=== PATIENT | male | born 1970 | race American Indian/Alaskan Native ===

== ENCOUNTER 2017-05-28 21:25 | Inpatient (IN) | payer SELFPAY ==
[2017-05-28] MEDS ORDERED: ONDANSETRON 4 MG/2 ML VIAL IVP ONE ×2 (21:47→21:58)
[2017-05-28] MEDS ORDERED: LORazepam 2 MG/ML INJ IVP ONE (21:58)
[2017-05-28] MEDS ORDERED: HYDROmorphONE/DILAUDID 1 MG/ML SYR IVP ONE (21:58)
[2017-05-28] MEDS ORDERED: NS 1,000 ML IV ONE (21:58)
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
[2017-05-28 22:32] LABS: % IMMATURE GRANULYOCYTES 0.6 % (0.0-1.1); ABSOLUTE IMMATURE GRANULOCYTES 0.13 10^3/uL (0.00-0.10); ADD DIFF? NO; ADD MORPH? NO; ADD SCAN? NO; ATYPICAL LYMPHOCYTE FLAG 0 (0-99); FRAGMENT RBC FLAG 0 (0-99); HEMATOCRIT 47.3 % (40.0-51.0); LEFT SHIFT FLG 0 (0-99); LIPEMIA HEMOLYSIS FLAG 90 (0-99); MEAN CELL HEMOGLOBIN 30.1 pg (27.9-34.1); MEAN CELL HEMOGLOBIN CONCENTR. 33.8 g/dL (32.4-36.7); MEAN CELL VOLUME 89.1 fL (81.5-99.8); MEAN PLATELET VOLUME 9.3 fL (8.7-11.7); PLATELET CLUMPS FLAG 40 (0-99); PLATELET COUNT 424 10^3/uL (150-400); RED BLOOD CELL COUNT 5.31 10^6/uL (4.40-6.38); RED CELL DISTRIBUTION WIDTH 12.7 % (11.5-15.2)
[2017-05-28] MEDS ORDERED: IOPAMIDOL (ISOVUE-300) 100 ML BTL ONE (22:36)
[2017-05-28] MEDS ORDERED: NS 2,600 ML IV ONE (22:44)
[2017-05-28 22:56] LABS: ALANINE AMINOTRANSFERASE 26 IU/L (21-72); ALBUMIN 4.5 g/dL (3.5-5.0); ALKALINE PHOSPHATASE 60 IU/L (38-126); ANION GAP 14 mEq/L (8-16); ASPARTATE AMINOTRANSFERASE 20 IU/L (17-59); BILIRUBIN-CONJUGATED 0.4 mg/dL (0.0-0.5); BILIRUBIN-UNCONJUGATED 0.6 mg/dL (0.0-1.1); CALCIUM 9.5 mg/dL (8.5-10.4); CARBON DIOXIDE 22 mEq/l (22-31); CHLORIDE 102 mEq/L (97-110); CREATININE 1.2 mg/dL (0.7-1.3); GLOMERULAR FILTRATION RATE > 60; GLUCOSE 174 mg/dL (70-100); POTASSIUM 4.3 mEq/L (3.5-5.2); SODIUM 138 mEq/L (134-144); TOTAL PROTEIN 6.8 g/dL (6.3-8.2)
[2017-05-28 23:39] LABS: LACGHOST ORDER
[2017-05-29 01:09] LABS: LACGHOST ORDER
[2017-05-29] MEDS ORDERED: ONDANSETRON 4 MG/2 ML VIAL IVP PRN (01:15)
[2017-05-29] MEDS ORDERED: ACETAMINOPHEN 325 MG TAB PO PRN (01:15)
[2017-05-29] MEDS ORDERED: DIAZEPAM 5 MG TAB PO PRN (01:15)
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
--- NOTE | 2017-05-29 01:35 | POSTOPPROG ---
Post Op Note Date of Operation: 05/29/17 Surgeon: Fransisco Emery Anesthesia: Local (Specify) Pre-op Diagnosis: phlebosclerosis Post-op Diagnosis: same Procedure: left IJ 3x lumen cath Inf/Abcess present in the surg proc area at time of surgery?: No EBL: Minimal Complications: none
[2017-05-29] MEDS: HYDROmorphONE/DILAUDID 1 MG/ML SYR IVP PRN (01:41)
[2017-05-29] MEDS: LR 1,000 ML IV SCH ×3 (01:42→15:55)
[2017-05-29 02:21] LABS: HEMATOCRIT 39.2 % (40.0-51.0); HEMOGLOBIN 13.3 g/dL (13.7-17.5)
[2017-05-29 02:30] LABS: INR 1.12 (0.83-1.16); PROTIME(PATIENT) 14.3 SEC (12.0-15.0)
[2017-05-29 02:31] LABS: APTT 30.9 SEC (23.0-38.0)
[2017-05-29 05:46] LABS: % IMMATURE GRANULYOCYTES 0.4 % (0.0-1.1); ABSOLUTE IMMATURE GRANULOCYTES 0.04 10^3/uL (0.00-0.10); ADD DIFF? NO; ADD MORPH? NO; ADD SCAN? NO; ATYPICAL LYMPHOCYTE FLAG 0 (0-99); FRAGMENT RBC FLAG 10 (0-99); HEMATOCRIT 35.9 % (40.0-51.0); HEMOGLOBIN 12.5 g/dL (13.7-17.5); LEFT SHIFT FLG 0 (0-99); LIPEMIA HEMOLYSIS FLAG 90 (0-99); MEAN CELL HEMOGLOBIN 30.6 pg (27.9-34.1); MEAN CELL HEMOGLOBIN CONCENTR. 34.8 g/dL (32.4-36.7); MEAN PLATELET VOLUME 9.3 fL (8.7-11.7); PLATELET CLUMPS FLAG 10 (0-99); PLATELET COUNT 333 10^3/uL (150-400); RED BLOOD CELL COUNT 4.08 10^6/uL (4.40-6.38); RED CELL DISTRIBUTION WIDTH 12.8 % (11.5-15.2)
[2017-05-29 06:11] LABS: ANION GAP 10 mEq/L (8-16); CALCIUM 8.7 mg/dL (8.5-10.4); CARBON DIOXIDE 23 mEq/l (22-31); CHLORIDE 106 mEq/L (97-110); CREATININE 1.1 mg/dL (0.7-1.3); GLOMERULAR FILTRATION RATE > 60; GLUCOSE 97 mg/dL (70-100); POTASSIUM 4.6 mEq/L (3.5-5.2); SODIUM 139 mEq/L (134-144)
[2017-05-29 07:25] LABS: COLOR YELLOW; LEUKOCYTE ESTERASE,URINE NEGATIVE (NEGATIVE); NITRITE,URINE NEGATIVE (NEGATIVE)
[2017-05-29] MEDS ORDERED: PNEUMOCOCCAL 0.5ML VACCINE VIAL IM ONE (07:44)
[2017-05-29] MEDS: NICOTINE 14 MG/24 HR PATCH TD SCH ×2 (08:15→18:38)
--- NOTE | 2017-05-29 08:23 | GOP ---
[f rep st] OPERATIVE REPORT DATE OF OPERATION: 05/29/2017 SURGEON: Fransisco Emery MD, FACS ANESTHESIA: Local. PREOPERATIVE DIAGNOSIS: 1. Hemoperitoneum with splenic rupture. 2. Phlebosclerosis/lack of venous access. POSTOPERATIVE DIAGNOSIS: 1. Hemoperitoneum with splenic rupture. 2. Phlebosclerosis/lack of venous access. PROCEDURE PERFORMED: Placement of left internal jugular triple-lumen catheter. FINDINGS: Uncomplicated catheter placement, with postprocedural chest x-ray showing the tip of the catheter to reside just inside the right atrium. No pneumothorax. ESTIMATED BLOOD LOSS: Negligible. DESCRIPTION OF PROCEDURE: After informed consent was obtained, the patient was placed supine in a slight Trendelenburg position. The left neck and chest wall were prepped and draped in usual fashion, and using a complete sterile barrier, sterile gown, and gloves, triple-lumen catheter placement was performed as follows: The left internal jugular vein was diminutive in size, measuring somewhat less than a centimeter. It was localized and the skin, subcutaneous tissues lateral to the vein, were infiltrated with 1% lidocaine plain. An 18-gauge thin-walled needle was then used to puncture the left internal jugular vein under direct visualization. A flexible J-wire was introduced and advanced without resistance. The skin was then incised with a #11 scalpel blade, and a dilator was passed over the wire, followed by a triple-lumen catheter, which was advanced without resistance. This was placed to a depth of approximately 15 cm , secured to the skin with interrupted 0 silk sutures. Catheter aspirated and was flushed with dilute heparin solution. Sterile Hep-Locks were applied. Postprocedural chest x-ray showed the tip of the catheter to be just inside the right atrium, with no pneumothorax. The catheter was secured to the skin with silk sutures and sterile dressings were applied. Tolerated the procedure well. COMPLICATIONS: None. /[id number]/MODL MTDD
--- NOTE | 2017-05-29 11:52 | SOAPPROG ---
SOAP Progress Note Assessment/Plan: Assessment: Plan: Subjective: feels good lungs clear abd soft, benign access: apparent spontaneous spleinc ruptue, jing with 24 hours of non operative manageement Objective: Vital Signs Temp Pulse Resp BP Pulse Ox 37.2 C 76 19 104/68 98 05/29/17 08:00 05/29/17 10:00 05/29/17 10:00 05/29/17 10:00 05/29/17 10:00 Laboratory Results 05/29/17 05:30 05/29/17 05:30 05/28/17 05/29/17 05/30/17 05:59 05:59 05:59 Intake Total 2622 Output Total 325 Balance 2297 PT 14.3 SEC (12.0-15.0) 05/28/17 02:10 INR 1.12 (0.83-1.16) 05/28/17 02:10 ICD10 Worksheet Patient Problems: Problems Problem Status Onset Intraperitoneal bleeding Acute Spleen capsular tear Acute
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
[2017-05-29 14:10] LABS: % IMMATURE GRANULYOCYTES 0.3 % (0.0-1.1); ABSOLUTE IMMATURE GRANULOCYTES 0.04 10^3/uL (0.00-0.10); ADD DIFF? NO; ADD MORPH? NO; ADD SCAN? NO; ATYPICAL LYMPHOCYTE FLAG 10 (0-99); FRAGMENT RBC FLAG 0 (0-99); HEMATOCRIT 33.7 % (40.0-51.0); HEMOGLOBIN 11.5 g/dL (13.7-17.5); LEFT SHIFT FLG 0 (0-99); LIPEMIA HEMOLYSIS FLAG 90 (0-99); MEAN CELL HEMOGLOBIN 30.3 pg (27.9-34.1); MEAN CELL HEMOGLOBIN CONCENTR. 34.1 g/dL (32.4-36.7); MEAN CELL VOLUME 88.7 fL (81.5-99.8); MEAN PLATELET VOLUME 9.3 fL (8.7-11.7); PLATELET CLUMPS FLAG 0 (0-99); PLATELET COUNT 243 10^3/uL (150-400); RED CELL DISTRIBUTION WIDTH 12.8 % (11.5-15.2)
[2017-05-30] MEDS: HYDROmorphONE/DILAUDID 1 MG/ML SYR IVP PRN ×3 (01:36→09:46)
[2017-05-30] MEDS: LR 1,000 ML IV SCH (01:36)
[2017-05-30 04:23] LABS: MEAN CELL HEMOGLOBIN 30.6 pg (27.9-34.1); MEAN CELL HEMOGLOBIN CONCENTR. 34.5 g/dL (32.4-36.7); MEAN CELL VOLUME 88.7 fL (81.5-99.8); RED BLOOD CELL COUNT 3.27 10^6/uL (4.40-6.38); RED CELL DISTRIBUTION WIDTH 12.5 % (11.5-15.2)
[2017-05-30] MEDS: NICOTINE 14 MG/24 HR PATCH TD SCH (09:46)
--- NOTE | 2017-05-30 10:43 | TRAUMAPN ---
Assessment/Plan: HD#3, 46yo M c spontaneous splenic rupture - VSS, HDS. Pain appropriate - Hb has come down to 10 this AM, started at 14. Will recheck at noon, if stable will plan to Tx to floor and ADAT - Anticipate Hb has equilibrated given reassuring vitals and exam. Likely one more night of monitoring and dc tomorrow Subjective: Denies pain, states that he is overall doing well Objective: Vital Signs Temp Pulse Resp BP Pulse Ox 37.3 C 79 22 H 120/63 99 05/30/17 04:00 05/30/17 06:00 05/30/17 06:00 05/30/17 06:00 05/30/17 06:00 Laboratory Results 05/30/17 04:20 05/29/17 05:30 05/29/17 05/30/17 05/31/17 05:59 05:59 05:59 Intake Total 2622 3974 Output Total 325 Balance 2297 3974 PT 14.3 SEC (12.0-15.0) 05/28/17 02:10 INR 1.12 (0.83-1.16) 05/28/17 02:10
[2017-05-30 12:06] LABS: HEMOGLOBIN 10.5 g/dL (13.7-17.5)
[2017-05-30] MEDS ORDERED: traMADol 50 MG TAB PO PRN (14:06)
--- NOTE | 2017-05-30 14:52 | PDINTPN ---
[employer] Progress Note Assessment/Plan: Assessment/plan: 46 M with remote IVWON admitted with sudden onset N/V and abdominal pain, who was found to have periotneal hemorrhage on CT scan. Presumed spontaneous splenic rupture but managed non-operatively with IVF, pain control and observation. He denies recent trauma, febrile illness, or travel to suggest EBV or Malaria. He responded well to this approach with substantial reduction in pain and stable hct. * Splenic rupture? not clear but resolving without surgical intervention. Diet advanced by surgery and agree with med/surg status. Added Ultram for PO pain control and expect dc home soon. Objective: Vital Signs Temp Pulse Resp BP Pulse Ox 36.6 C 78 18 133/74 H 99 05/30/17 08:00 05/30/17 12:00 05/30/17 12:00 05/30/17 12:00 05/30/17 12:00 Laboratory Results 05/30/17 12:00 05/29/17 05:30 05/29/17 05/30/17 05/31/17 05:59 05:59 05:59 Intake Total 2622 3974 Output Total 325 Balance 2297 3974 PT 14.3 SEC (12.0-15.0) 05/28/17 02:10 INR 1.12 (0.83-1.16) 05/28/17 02:10 Physical Exam - Physical Exam General Appearance: WD/WN, alert, no apparent distress EENT: PERRL/EOMI Neck: supple Respiratory: lungs clear, normal breath sounds, No respiratory distress Cardiac/Chest: regular rate, rhythm, No edema Abdomen: normal bowel sounds, soft, other (mild diffuse tenderness, LUQ>RUQ), No distended, No guarding, No rebound, No splenomegaly Skin: normal color, warm/dry Lymphatic: no adenopathy Extremities: No pedal edema Neuro/Psych: alert, normal mood/affect, oriented x 3 ICD10 Worksheet Patient Problems: Problems Problem Status Onset Intraperitoneal bleeding Acute Spleen capsular tear Acute
[2017-05-30] MEDS: OXYCODONE/APAP 5/325 TAB PO PRN ×2 (16:18→19:48)
[2017-05-31] MEDS: OXYCODONE/APAP 5/325 TAB PO PRN ×2 (00:49→06:41)
[2017-05-31 07:23] VITALS: BP 147/90; PULSE 63; RESP 16; TEMP 98.4; O2SAT 97
[2017-05-31] MEDS: NICOTINE 14 MG/24 HR PATCH TD SCH (07:50)
[2017-05-31] MEDS ORDERED: PNEUMOCOCCAL 0.5ML VACCINE VIAL IM ONE (08:39)
--- NOTE | 2017-05-31 11:41 | PDDCSUM ---
Discharge Summary Discharge Summary: Mr Rolf Harrison is a 46-year-old gentleman who presented with spontaneous splenic injury. Patient has told the nursing staff that he had a fall he told the medical staff that he was vomiting. He has a history of IVDA and is not a very good historian. He presented with initial hemoglobin of 12.5 which drifted down to 10.5 and remained stable at 10.0 today prior to discharge. He was tolerated diet activity as normal no hemodynamic instability. He was discharged home with Tylenol or ibuprofen for pain follow up with General surgery as needed. Return to the hospital for any signs of acute bleeding such as abdominal distention, fatigue, acute pain especially left shoulder. The patient verbalizes understanding. Central lumen catheter which was placed for IV access for history of phlebosclerosis was removed without difficulty prior to discharge. All questions were answered.
== END 2017-05-31 11:52 | disposition home or self-care (01) | DRG 814 ==
LOC: F2N 05-29 01:30 → F3E 05-30 14:41
PROVIDERS: ADMIT Surgery; ATTEND Surgery
PROC: 02H633Z Insertion of Infusion Device into Right Atrium, Percutaneous Approach (ICD-10-PCS; principal; 2017-05-29)
DX: D73.5 Infarction of spleen (principal); K66.1 Hemoperitoneum; I87.8 Other specified disorders of veins; I10 Essential (primary) hypertension
CPT/HCPCS: 82947-QW; 96374; G0009; J1170; J2060; J2405; Q9967